=== PATIENT | female | born 1950 | race African-American/Black ===

== ENCOUNTER 2016-12-19 20:52 | Inpatient (IN) ==
[2016-12-19] MEDS ORDERED: SODIUM CHLORIDE 0.9% 500 ML IV STA (21:58)
[2016-12-19] MEDS ORDERED: NITROGLYCERIN 2% OINT 1 INCH/GM PACK TOP STA (21:58)
[2016-12-19] MEDS ORDERED: ALUM/MAG/SIMETH/LIDO VISC 1:1 30 ML BOTTLE PO STA (21:58)
[2016-12-19] MEDS ORDERED: ASPIRIN 325 MG TABLET PO STA (21:58)
[2016-12-19] MEDS ORDERED: ONDANSETRON 4 MG/2 ML VIAL IV STA (21:58)
--- NOTE | 2016-12-19 21:59 | Emergency Department Note ---
Migdalia Gutierres Gwan, am scribing for, and in the presence of, Brody Kirby MD 21 :38. Kofi Gutierres Charles R, MD, personally performed the services described in this documentation, ascribed by Lu Negron in my presence, and it is both accurate and complete . Arrival - Arrival Chief Complaint: Chest Pain Stated Complaint: chest pain ED Nursing Triage Note: Pt to triage with c/o chest pain that feels like pressure that raidates to her neck. Denies any sob but n/v today. Pt had a heart cath done on last Friday by . Family states she havent been the same since surgery. Pt also states she been feeling very light headed and dizzy. Rates chest pain 12/04 Mode of Arrival: Wheelchair Limitations: No Limitations Source: Patient, Family, Old Records Reviewed, RN Notes Reviewed - History of Present Illness HPI Narrative: Patient is a 66 y/o black female who presents to the ED with a c/o chest pain, hematuria, urine frequency and dizziness with an onset 6 days ago. Pt has a PMHx of IDDM and polio. She was last seen in ED 11/29/2016 for similar reason. Patient stated that she had a heart cath performed [address] Akbar with negative results. She describes her chest pain as pressure and that her chest pain radiates to her neck. Family confirmed that since heart cath, pt has appeared confused and "not making any sense". Patient is followed by Dr. Zelaya. Patient denies any trauma to her chest or her head. During exam, pt did not appear to be in any distress. Onset (ago): day(s) Consistency: constant Severity: moderate Allergies/Adverse Reactions: Allergies Allergy/AdvReac Type Severity Reaction Status Date / Time doxycycline Allergy HIVES Verified 12/19/16 21:08 Penicillins Allergy ANAPHYLAXIS Verified 12/19/16 21:08 Sulfa (Sulfonamide AdvReac RASH Verified 12/19/16 21:08 Antibiotics) Home Medications: Home Medications Medication Instructions Recorded Confirmed Type Amlodipine Besylate 10 mg PO DAILY 11/25/14 12/13/16 History Omeprazole [Prilosec] 20 mg PO BEDTIME 11/25/14 12/13/16 History Rosuvastatin Calcium [Crestor] 40 mg PO BEDTIME 11/25/14 12/13/16 History Acetaminophen Tab [Tylenol Tab] 325 mg PO BID #100 tablet 12/13/16 Rx Aspirin [Aspirin EC] 81 mg PO DAILY 12/13/16 12/13/16 History Furosemide 20 mg PO DAILY 12/13/16 12/13/16 History NIFEdipine XL TAB [Procardia Xl] 30 mg PO DAILY 12/13/16 12/13/16 History Review of System - Review of System 12 point system: reviewed and no additional remarkable complaints except as stated - Review of System Constitutional: Absent: chills, fever Eyes: Absent: discharge Head/Ears/Nose/Throat: Absent: earache Respiratory: Absent: cough Cardiovascular: Present: as per HPI, chest pain Gastrointestinal: Absent: abdominal pain, nausea, vomiting Genitourinary female: Present: as per HPI, frequency, hematuria. Absent: dysuria Musculoskeletal: Absent: arm pain, back pain, leg pain, neck pain Skin: Absent: rash, lesions Neurological: Absent: headache Medical,Surgical,& Family Hx - Medical History Cardio: History of: Hypertension Neurology: History of: Migraine, Neurological Problems (history of polio as a child resulting in right lower extremity weakness) No history of: Seizures - Family History Family History: Reports;: Family Heart Disease - Social History Smoking Status: Never smoker Frequency of Alcohol Use: None Type of Drug Use: None Exam Vital Signs: Vital Signs Temperature 99.6 F 12/19/16 22:24 Pulse Rate 101 H 12/19/16 22:24 Respiratory Rate 16 12/19/16 22:24 Blood Pressure 104/66 12/19/16 22:24 O2 Sat by Pulse Oximetry 95 12/19/16 20:57 - General General appearance: alert, in no apparent distress - Head Head exam: Present: atraumatic, normocephalic - Eye Eye exam: Present: PERRL, EOMI, nystagmus (bilatrally) - ENT ENT exam: Present: normal oropharynx, mucous membranes moist, TM's normal bilaterally, normal external ear exam - Neck Neck exam: Present: full ROM, trachea midline. Absent: tenderness - Chest Chest inspection: Present: symmetric chest wall rise. Absent: tenderness - Respiratory Respiratory exam: Present: normal lung sounds bilaterally. Absent: respiratory distress - Cardiovascular Cardiovascular exam: Present: regular rate, normal rhythm, normal heart sounds. Absent: murmur - Abdominal Exam Abdominal exam: Present: soft, distention (patient has an obvious fullness to suprapubc area but pt denies any tenderness/pain in that area), normal bowel sounds. Absent: tenderness - Extremities Exam Extremities exam: Absent: full ROM (Patient has brace on left lower extremitiy consistant with PMHx of polio), tenderness - Back Exam Back exam: Present: full ROM. Absent: tenderness - Neurological Exam Neurological exam: Present: alert, oriented X3, CN II-XII intact. Absent: motor sensory deficit - Psychiatric Psychiatric exam: Present: normal affect, normal mood - Skin Skin exam: Present: warm, dry, intact, normal color Course - Consultations Consultation #1: Dr. Covarrubias will admit patient for Dr. Dr. Zelaya Time: 00:42 Results - Labs CBC & BMP: 12/19/16 21:33 12/19/16 21:33 Lab Results: I have reviewed the patients labs Labs: Laboratory Tests 12/19/16 12/19/16 12/19/16 21:33 21:33 21:33 WBC 18.5 H RBC 4.50 Hgb 13.0 Hct 38.7 MCV 86.0 L Plt Count 217 Neut % (Auto) 84.8 H Lymph % (Auto) 8.9 L Neut # (Auto) 15.7 H Meade # (Auto) 1.0 H INR 1.2 PT Patient/Control Mix 12.4 D-Dimer, Quantitative 3.6 Sodium 140 Potassium 3.3 L Chloride 102 Carbon Dioxide 22 Anion Gap 19.3 H BUN 15 Creatinine 1.20 H Glucose 143 H Calcium 8.3 L Magnesium 1.7 L Albumin 3.1 L Globulin 3.9 H Albumin/Globulin Ratio 0.7 L Lipase 108.0 Urine pH Ur Specific Andrews Urine Protein Urine Ketones Urine Blood Urine Urobilinogen Urine RBC Urine WBC Laboratory Tests 12/19/16 21:58 Urine pH 6.0 Ur Specific Andrews 1.017 Urine Protein 100 Urine Ketones 20 Urine Blood Moderate Urine Urobilinogen < 2.0 H Urine RBC 2 Urine WBC 9 - Diagnostic Findings Procedure: Chest x-ray: report reviewed by me (No evidence of acute pathology. ) , CT - chest: image reviewed by me, report reviewed by me (No pulmonary embolus) , CT: report reviewed by me (Head: No CT evidence of acute intracranial pathology. ) Disposition Clinical Impression: Atypical chest pain, UTI (urinary tract infection), Leukocytosis, Confusion Case discussed with: patient, patient's family Disposition: Still a Patient Condition: Stable Time of Disposition: 00:40
--- NOTE | 2016-12-19 22:02 | EKG Report ---
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
[2016-12-19 22:07] LABS: Basophils % 0.2 % (0.0-0.8); Hematocrit 38.7 VOL% (35.7-47.0); Immature Granulocytes % 0.8 %; Immature Granulocytes Absolute 0.14 #; Lymphocytes # 1.6 10*3/uL (1.4-4.0); Lymphocytes % 8.9 % (21.3-54.2); Mean Corpuscular HGB Conc 33.6 GM/DL (32-36); Mean Corpuscular Hemoglobin 29 PG (27-34); Monocytes % 5.3 % (1.7-12.7); Neutrophils # 15.7 10*3/uL (1.4-7.4); Neutrophils % 84.8 % (38.7-73.9); Platelet Count 217 T/CUMM (130-400); Red Cell Distribution Width 14.5 % (9.3-17.3); White Blood Count 18.5 T/CUMM (4-12)
[2016-12-19] MEDS ORDERED: ASPIRIN 325 MG TABLET ONE (22:13)
[2016-12-19] MEDS ORDERED: ONDANSETRON 4 MG/2 ML VIAL ONE (22:13)
[2016-12-19] MEDS ORDERED: NITROGLYCERIN 2% OINT 1 INCH/GM PACK TOP ONE (22:13)
[2016-12-19] MEDS ORDERED: ALUM/MAG/SIMETH/LIDO VISC 1:1 30 ML BOTTLE PO ONE (22:13)
[2016-12-19 22:19] LABS: D-Dimer 3.6 MG/L FEU; INR 1.2; PT Patient Result 12.4 SECS
[2016-12-19 22:28] LABS: Apearance,Urine Slightly Hazy (Clear); Bacteria,Urine Occasional /HPF (Few); Bilirubin,Urine Negative (Negative); Blood, Urine Moderate mg/dL (Negative); Glucose,Urine (UA) Negative (Negative); Ketones,Urine 20 mg/dL (Negative); Mucus,Urine Occasional /LPF (Occasional); Nitrite,Urine Negative (Negative); Protein,Urine 100 MG/DL; RBC,Urine 2 /HPF (0-4); Squamous Epithelial Cell,Urine Occasional /HPF (0-10); Urine Color Yellow (Yellow); Urine Specific Gravity 1.017 (1.001-1.035); Urine Urobilinogen < 2.0 EU/DL (0.2-1.0); WBC,Urine 9 /HPF (0-6)
[2016-12-19 22:28] LABS: Albumin 3.1 G/DL (3.4-5.0); Bilirubin,Total 0.5 MG/DL (0.2-1.0); Calcium 8.3 MG/DL (8.5-10.1); Magnesium 1.7 MG/DL (1.8-2.4); Osmolality,Calculated 281.4 MOS/KG (273-304); Potassium 3.3 MMOL/L (3.5-5.1)
--- NOTE | 2016-12-19 22:31 | XRay Report ---
XR chest 1V portable Indication: Chest pain. Comparison: Chest x-ray 12/13/2016 Technique: Portable AP chest was performed. Findings: Heart size, mediastinal contour, and hilar structures demonstrate no significant abnormalities. The lung parenchyma is clear. Bones and soft tissues demonstrate no significant abnormalities. Impression: 1. No evidence of acute pathology. 12/19/2016 10:29 PM PROCEDURE INTERPRETED AT [facility] DEPARTMENT OF RADIOLOGY Final Report Signed by: Dr. Edmundo Lopez
--- NOTE | 2016-12-19 22:31 | CT Report ---
CT head/brain wo con Indication: Confusion. Dizziness. Comparison: None. Technique: CT of the brain was performed without administration of intravenous contrast. The CT examination was performed using one or more of the following dose reduction techniques: Automatic exposure control, adjustment of the mA and kV according to patient size, use of acute or iterative reconstruction techniques. Findings: There is no evidence of acute intracranial hemorrhage, mass, or infarction. Ventricles appear within normal limits. The basal cisterns are patent. No significant abnormality is demonstrated to involve the posterior fossa or cerebellum. Orbits and globes demonstrate no evidence of significant pathology. Extensive surgical changes are noted bilaterally within the paranasal sinuses. No significant abnormality is demonstrated to involve the mastoid air cells. The calvarium and overlying soft tissues demonstrate no evidence of acute pathology. Impression: 1. No CT evidence of acute intracranial pathology. 12/19/2016 10:28 PM PROCEDURE INTERPRETED AT [facility] DEPARTMENT OF RADIOLOGY Final Report Signed by: Dr. Edmundo Lopez
[2016-12-19] MEDS ORDERED: POTASSIUM CHLORIDE 20 MEQ TABLET PO STA (23:06)
[2016-12-19] MEDS ORDERED: POTASSIUM CHLORIDE 20 MEQ TABLET PO ONE (23:33)
[2016-12-20] MEDS ORDERED: LEVOFLOXACIN INJ 500 MG in PREMIX 1 EACH IV STA (00:41)
[2016-12-20] MEDS ORDERED: LEVOFLOXACIN INJ 100 ML IV ONE (02:02)
[2016-12-20] MEDS ORDERED: MORPHINE 2 MG/1 ML SYRINGE IV PRN (02:58)
[2016-12-20] MEDS ORDERED: GLUCAGON 1 MG VIAL IM PRN (02:58)
[2016-12-20] MEDS ORDERED: ONDANSETRON 4 MG/2 ML VIAL IV PRN (02:58)
[2016-12-20] MEDS ORDERED: DEXTROSE 50% 25 GM/50 ML VIAL IV PRN (02:58)
[2016-12-20] MEDS: SODIUM CHLORIDE 0.9% 1,000 ML IV SCH ×2 (03:30→18:19)
[2016-12-20 05:19] LABS: Basophils % 0.2 % (0.0-0.8); Hematocrit 35.7 VOL% (35.7-47.0); Immature Granulocytes % 0.6 %; Immature Granulocytes Absolute 0.09 #; Lymphocytes # 1.2 10*3/uL (1.4-4.0); Lymphocytes % 7.4 % (21.3-54.2); Mean Corpuscular HGB Conc 33.6 GM/DL (32-36); Mean Corpuscular Hemoglobin 29 PG (27-34); Mean Corpuscular Volume 85.8 FL (87-102); Monocytes # 0.8 10*3/uL (0.11-0.8); Monocytes % 4.8 % (1.7-12.7); Platelet Count 200 T/CUMM (130-400); Red Blood Count 4.16 MC/CUMM (3.8-5.5); Red Cell Distribution Width 14.4 % (9.3-17.3)
[2016-12-20 05:43] LABS: Band Neutrophils 7 % (0-10); Eosinophils 1 % (0-10); Lymphocytes 6 % (20-55); Segmented Neutrophils 84 % (50-85); Total Cells Counted 100
[2016-12-20 05:44] LABS: Hypochromasia 1+; Platelet Estimate Adequate
[2016-12-20 05:49] LABS: Albumin 2.9 G/DL (3.4-5.0); Bilirubin,Total 0.5 MG/DL (0.2-1.0); Magnesium 1.8 MG/DL (1.8-2.4); Osmolality,Calculated 278.7 MOS/KG (273-304); Potassium 3.3 MMOL/L (3.5-5.1); Risk Ratio 4.93; Total Protein 6.7 G/DL (6.4-8.3); VLDL CHOLESTEROL 24.6 MG/DL
--- NOTE | 2016-12-20 05:49 | CT Report ---
EXAM: CT chest PE study DATE: December 19, 2016 COMPARISON: None REASON: Chest pain, elevated d-dimer, tachycardia, shortness of breath Preliminary report was provided by [facility]. TECHNIQUE: Axial images of the chest were obtained after administration of 80 cc of Omnipaque 350 intravenous contrast. Coronal/sagittal reformatted images and coronal/sagittal sagittal MIP images were also acquired. The study was performed per pulmonary embolism protocol. Total DLP was 959.7 mGy*cm. FINDINGS: Pulmonary arteries: Evaluation of the pulmonary arteries is limited by poor opacification. However, no convincing pulmonary emboli are identified. Vascular/heart: The thoracic aorta is normal in size without evidence of dissection. The heart is normal in size, and no pericardial effusion is seen. Calcified plaque is noted at the left coronary artery. Lymph nodes: No suspicious adenopathy is identified at the chest. Other mediastinum: There is a small hiatal hernia. Chest wall: There are areas of asymmetric muscle atrophy on the left, involving the left pectoralis major muscle. Lungs: There is minimal dependent atelectasis. No pneumothorax or pleural effusion is identified. Bones: No acute osseous process is identified. Upper abdomen: There is diffuse decreased attenuation of the liver, suggesting hepatic steatosis. A 1.1 cm hypodensity is seen within the left hepatic lobe adjacent to the left hepatic vein on image 81. This likely represents a cyst. IMPRESSION: 1. The pulmonary arteries are poorly opacified, but no convincing pulmonary embolus is identified. 2. Hepatic steatosis and 1.1 cm left hepatic cyst. 3. Small hiatal hernia. PROCEDURE INTERPRETED AT [facility] DEPARTMENT OF RADIOLOGY Final Report Signed by: Dr. Burt Fowler
[2016-12-20] MEDS: NITROGLYCERIN 2% OINT 1 INCH/GM PACK TOP SCH ×3 (06:09→18:17)
--- NOTE | 2016-12-20 07:25 | EKG Report ---
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
--- NOTE | 2016-12-20 08:09 | Family Practice History&Phys ---
Assessment and Plan (1) Unsteady gait Status: Acute Assessment and plan: 12/20/2016: MRI of the brain has been ordered. Current Visit: Yes (2) Chest pain in adult Status: Acute Assessment and plan: 12/20/2016: Suspect GI etiology of her discomfort but certainly could be musculoskeletal as well. She has had a negative CT chest and a negative left heart catheterization. Current Visit: No History of Present Illness Chief complaint: Unsteady gait History of present illness: Ms. Abebe is a 66 year old female Patient 66-year-old white female presents emergency room complaining of chest pain and unsteady gait. Patient states this began after she had her left heart catheterization last week. This showed no evidence of coronary artery disease. Patient states this pain is been steadily present since its onset. She denies any dyspepsia or dysphasia and is not having any nausea or vomiting. She denies any back pain. Patient states she has noticed that her gait is unsteady and this is very worrisome for her and she is impaired from her childhood polio. Patient states she has not noticed any increased weakness in her left lower extremity but she feels unsteady when she walks. She has not fallen. I told her she needed have an MRI of the brain and she was agreeable to that. CT brain in the emergency room revealed no acute abnormality. I also note that she had a CT of the chest ordered by Dr. Kirby. Home Medications Medication Instructions Recorded Confirmed Type Amlodipine Besylate 10 mg PO DAILY 11/25/14 12/13/16 History Omeprazole [Prilosec] 20 mg PO BEDTIME 11/25/14 12/13/16 History Rosuvastatin Calcium [Crestor] 40 mg PO BEDTIME 11/25/14 12/13/16 History Acetaminophen Tab [Tylenol Tab] 325 mg PO BID #100 tablet 12/13/16 Rx Aspirin [Aspirin EC] 81 mg PO DAILY 12/13/16 12/13/16 History Furosemide 20 mg PO DAILY 12/13/16 12/13/16 History NIFEdipine XL TAB [Procardia Xl] 30 mg PO DAILY 12/13/16 12/13/16 History Allergies Allergy/AdvReac Type Severity Reaction Status Date / Time doxycycline Allergy HIVES Verified 12/19/16 21:08 Penicillins Allergy ANAPHYLAXIS Verified 12/19/16 21:08 Sulfa (Sulfonamide AdvReac RASH Verified 12/19/16 21:08 Antibiotics) - Constitutional Constitutional: Present: weakness. Absent: chills, fever(s) - EENT Eyes: Absent: blurry vision, loss of vision Ears: Absent: decreased hearing, ear pain Nose, mouth and throat: Absent: headache(s), sinus pressure, sore throat - Cardiovascular Cardiovascular: Absent: chest pain at rest, dyspnea on exertion, lightheadedness , orthopnea, palpitations, PND - Respiratory Respiratory: Absent: cough, wheezing - Gastrointestinal Gastrointestinal: Absent: abdominal pain, diarrhea, nausea, vomiting - Genitourinary Genitourinary: Present: dysuria. Absent: urinary frequency, urinary hesitancy - Musculoskeletal Musculoskeletal: Absent: arthralgias, back pain - Neurological Neurological: Present: abnormal gait, focal weakness (Chronic right lower extremity weakness from polio), headache(s). Absent: numbness, paresthesias - Psychiatric Psychiatric: Absent: confusion, depression - Endocrine Endocrine: Absent: fatigue, polydipsia, polyphagia - Hematologic/Lymphatic Hematologic/Lymphatic: Absent: easy bleeding, easy bruising Medical,Surgical,& Family Hx - Medical History Cardio: History of: Hypertension Neurology: History of: Migraine, Neurological Problems (history of polio as a child resulting in right lower extremity weakness) No history of: Seizures Endocrine: History of: Diabetes Mellitus (NIDDM) Musculoskeletal: History of: Musculoskeletal Problems (brace on right leg to walk polio as child) - Surgical History Cardiac Surgeries: Sugical HX of: Cardiac Catheterization (12/13/2016) - Family History Family History: Reports;: Family Heart Disease - Social History Smoking Status: Never smoker Frequency of Alcohol Use: None Type of Drug Use: None Exam - Constitutional Vitals: Period Temp Pulse Resp BP Sys/Jenkins Pulse Ox Last 24 Hr 99.6 F-100.9 F 101-124 16-20 104-136/52-85 94-98 Exam: General: Objective patient is a well-developed black female in no acute distress. Patient is able to give good history. HEENT: Pupils equal and reactive to light. Patent nares and airway Neck: No meningismus, adenopathy, thyromegaly. There are no auscultated carotid bruits. Cardiovascular: Regular rhythm. No murmurs or gallops Chest: Clear to auscultation without rales rhonchi wheezes. Abdomen: Soft nontender to palpation No masses, rebound, guarding or tenderness. Neuro: Cranial nerves intact. 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 Patient has chronic right lower extremity weakness and atrophy related to that. Dermatologic: No evidence of abnormal lesions or masses. Musculoskeletal: There is no joint swelling or tenderness or deformity. Extremities: There is no calf swelling or tenderness. Results - Labs CBC & BMP: 12/20/16 04:58 12/20/16 04:58 Lab Results: I have reviewed the past 24 hour labs
--- NOTE | 2016-12-20 08:48 | XRay Report ---
Exam: Chest 2 views Date: December 20, 2016 at 8:29 AM Comparison: Chest one view portable December 19, 2016 Reason: Shortness of breath Findings: The cardiac silhouette is normal in size. No focal consolidation, pneumothorax or pleural effusion is identified. No acute osseous process is seen. Impression: No acute cardiopulmonary process is identified. PROCEDURE INTERPRETED AT [facility] DEPARTMENT OF RADIOLOGY Final Report Signed by: Dr. Burt Fowler
[2016-12-20] MEDS: DOCUSATE SODIUM 100 MG CAPSULE PO SCH ×2 (08:57→21:27)
[2016-12-20] MEDS: amLODIPine 10 MG TABLET PO SCH (08:57)
[2016-12-20] MEDS: ACETAMINOPHEN 325 MG TABLET PO PRN ×3 (08:57→22:32)
[2016-12-20] MEDS: ENOXAPARIN 40 MG/0.4 ML SYRINGE SUBCUT SCH (08:57)
[2016-12-20] MEDS: ASPIRIN EC 81 MG TABLET PO SCH (08:57)
[2016-12-20] MEDS: PANTOPRAZOLE 40 MG VIAL IV SCH (08:57)
[2016-12-20] MEDS: FUROSEMIDE 20 MG TABLET PO SCH (08:57)
[2016-12-20] MEDS: INSULIN LISPRO 100 UNIT/ML SUBCUT SCH ×4 (09:00→21:29)
--- NOTE | 2016-12-20 15:13 | Magnetic Resonance Report ---
Exam: MR head/brain wo con Date: 12/20/2016 8:03 AM Comparison: CT brain 12/19/2016, MRI brain 08/28/2010 Indication: Steady gait, confusion, recent heart catheterization, dizziness, patient has a neurostimulator which was turned off for the exam. Technique:[Multiple acquisitions were obtained including sagittal T1, coronal T2, and axial ADC, diffusion, FLAIR, T2, GRE, and T1 scans without contrast only. Scans were obtained on a 1.5 Darleen magnet.] Findings: The ventricles are normal in size with no midline displacement. The pituitary has a normal appearance and the cerebellar tonsils are normal in their location. No acute infarction is identified on the diffusion scans. No evidence of hemorrhage, mass, or extracerebral collection. Diffuse cerebral atrophy with a few small scattered FLAIR/T2 hyperintensities. Enlarged perivascular spaces which represent a normal variant. No acute findings in the paranasal sinuses, orbits, temporal bones, or [place]. Impression: Motion artifact. No acute intracranial pathology identified. Minimal atrophy with very minimal microvascular disease. PROCEDURE INTERPRETED AT [facility] DEPARTMENT OF RADIOLOGY Final Report Signed by: Dr. Seema Salinas
[2016-12-20] MEDS: ROSUVASTATIN 20 MG TABLET PO SCH (21:26)
[2016-12-20] MEDS: LEVOFLOXACIN INJ 500 MG in PREMIX 1 EACH IV SCH (21:29)
[2016-12-21] MEDS: NITROGLYCERIN 2% OINT 1 INCH/GM PACK TOP SCH ×3 (06:00→12:04)
--- NOTE | 2016-12-21 07:52 | Family Practice Progress Note ---
Family Practice - PN: Subj Interval history: Patient states she is feeling some better this morning but she still having some pain in the site where she had her left heart catheterization puncture. I have ordered an ultrasound to rule out pseudoaneurysm. I also notes that she has had 2 positive blood cultures for gram-positive Cocci. X-ray of her right hip will be ordered as well. Exam (Progress Note) - Constitutional Vitals: Period Temp Pulse Resp BP Sys/Jenkins Pulse Ox Last 24 Hr 97.1 F-102.1 F 88-104 18-22 106-136/52-69 92-100 Exam: Objective reveals a well-developed black female no acute distress. She states she is feeling better from yesterday and her temperature is down with the addition of IV Levaquin. She has gram-positive septicemia however. Cardiovascular: Heart rates regular without murmurs or gallops. Respiratory: The lungs clear to auscultation bilaterally. Abdomen: Abdomen soft and nontender to palpation. Patient still has some tenderness in the area of her right groin and I do not feel a mass. I will order ultrasound for groin as well as x-ray of her right hip. Results - Labs CBC & BMP: 12/20/16 04:58 12/20/16 04:58 Lab Results: I have reviewed the past 24 hour labs Assessment and Plan (1) Unsteady gait Status: Acute Assessment and plan: 12/20/2016: MRI of the brain has been ordered. 12/21/2016: MRI of the brain was unrevealing. Current Visit: Yes (2) Chest pain in adult Status: Acute Assessment and plan: 12/20/2016: Suspect GI etiology of her discomfort but certainly could be musculoskeletal as well. She has had a negative CT chest and a negative left heart catheterization. 12/21/2016: Patient denies any further chest pain. Current Visit: No (3) Gram positive septicemia Status: Acute Assessment and plan: 12/21/2016: Will check x-ray of the right hip and also ultrasound of the right groin. I am going to start IV vancomycin. Current Visit: Yes
[2016-12-21] MEDS: INSULIN LISPRO 100 UNIT/ML SUBCUT SCH ×4 (08:39→20:58)
[2016-12-21] MEDS: ENOXAPARIN 40 MG/0.4 ML SYRINGE SUBCUT SCH (08:42)
[2016-12-21] MEDS: FUROSEMIDE 20 MG TABLET PO SCH (08:42)
[2016-12-21] MEDS: amLODIPine 10 MG TABLET PO SCH (08:42)
[2016-12-21] MEDS: DOCUSATE SODIUM 100 MG CAPSULE PO SCH ×2 (08:42→21:12)
[2016-12-21] MEDS: PANTOPRAZOLE 40 MG VIAL IV SCH (08:43)
[2016-12-21] MEDS: ASPIRIN EC 81 MG TABLET PO SCH (09:05)
[2016-12-21] MEDS: VANCOMYCIN INJ 1,250 MG in SODIUM CHLORIDE 0.9% 250 ML IV SCH (09:49)
--- NOTE | 2016-12-21 12:19 | Ultrasound Report ---
History: Left groin pain after heart catheterization Date: 12/21/2016 Study: Ultrasound arterial duplex limited to left lower extremity for pseudoaneurysm Comparison exam: No previous Real-time ultrasound images are captured and archived. Targeted grayscale, color Doppler, and pulse wave Doppler images of the left common femoral artery and proximal superficial femoral artery are submitted. There is mild atherosclerotic irregularity of the left common femoral artery. There is no pseudoaneurysm or AV fistula. There is no high-grade stenosis. There is no organized hematoma. The adjacent left common femoral vein is patent. Some small left inguinal lymph nodes are noted. Impression: No pseudoaneurysm or other localized abnormality of significance otherwise in the left groin as discussed above PROCEDURE INTERPRETED AT [facility] DEPARTMENT OF RADIOLOGY Final Report Signed by: Dr. Bev Obregon
[2016-12-21] MEDS: ACETAMINOPHEN 325 MG TABLET PO PRN (15:45)
--- NOTE | 2016-12-21 19:45 | XRay Report ---
History: Hip pain and fever Date: 12/21/2016 Study: Left hip 2 views Comparison exam: Pelvis x-ray March 10, 2012 There is no fracture, dislocation, or focal destructive osseous abnormality. A neurostimulator lead overlies the sacral area to the left of midline. Impression: No acute abnormality PROCEDURE INTERPRETED AT [facility] DEPARTMENT OF RADIOLOGY Final Report Signed by: Dr. Bev Obregon
[2016-12-21] MEDS: ROSUVASTATIN 20 MG TABLET PO SCH (20:53)
[2016-12-21] MEDS: LEVOFLOXACIN INJ 500 MG in PREMIX 1 EACH IV SCH (20:55)
[2016-12-22 05:20] LABS: Basophils % 0.3 % (0.0-0.8); Eosinophils % 0.1 % (0.00-10.9); Hematocrit 33.6 VOL% (35.7-47.0); Hemoglobin 11.5 GM/DL (12.0-16.0); Immature Granulocytes Absolute 0.07 #; Lymphocytes # 1.6 10*3/uL (1.4-4.0); Lymphocytes % 23.5 % (21.3-54.2); Mean Corpuscular HGB Conc 34.2 GM/DL (32-36); Mean Corpuscular Hemoglobin 29 PG (27-34); Mean Corpuscular Volume 84.6 FL (87-102); Mean Platelet Volume 10.5 FL (9.6-12.0); Monocytes # 0.7 10*3/uL (0.11-0.8); Neutrophils # 4.5 10*3/uL (1.4-7.4); Neutrophils % 65.1 % (38.7-73.9); Platelet Count 167 T/CUMM (130-400); Red Blood Count 3.97 MC/CUMM (3.8-5.5); Red Cell Distribution Width 14.4 % (9.3-17.3)
[2016-12-22 05:49] LABS: Band Neutrophils 1 % (0-10); Lymphocytes 22 % (20-55); Platelet Estimate Normal; Segmented Neutrophils 67 % (50-85); Total Cells Counted 100
[2016-12-22] MEDS ORDERED: traMADol 50 MG TABLET PO PRN (08:07)
--- NOTE | 2016-12-22 08:11 | Family Practice Progress Note ---
Family Practice - PN: Subj Interval history: Patient states she is feeling some better this morning has not had any fever or chills. Both her blood cultures are positive for methicillin sensitive staph aureus. She had a negative ultrasound of her left groin and her x-rays of her hip appeared normal. She has not had any dental work or any other procedure other than her left heart catheterization. Exam (Progress Note) - Constitutional Vitals: Period Temp Pulse Resp BP Sys/Jenkins Pulse Ox Last 24 Hr 98.1 F-100.2 F 82-95 17-20 108-125/51-61 92-99 Exam: Objective reveals a well-developed black female no acute distress. She states she is feeling better from yesterday and her temperature is controlled. Cardiovascular: Heart rates regular without murmurs or gallops. Respiratory: The lungs clear to auscultation bilaterally. Abdomen: Abdomen soft and nontender to palpation. Results - Labs CBC & BMP: 12/22/16 04:38 12/20/16 04:58 Lab Results: I have reviewed the past 24 hour labs Assessment and Plan (1) Unsteady gait Status: Resolved Assessment and plan: 12/20/2016: MRI of the brain has been ordered. 12/21/2016: MRI of the brain was unrevealing. Current Visit: Yes (2) Chest pain in adult Status: Resolved Assessment and plan: 12/20/2016: Suspect GI etiology of her discomfort but certainly could be musculoskeletal as well. She has had a negative CT chest and a negative left heart catheterization. 12/21/2016: Patient denies any further chest pain. Current Visit: No (3) Gram positive septicemia Status: Acute Assessment and plan: 12/21/2016: Will check x-ray of the right hip and also ultrasound of the right groin. I am going to start IV vancomycin. 12/14/2016: Patient is clinically improved with the addition of vancomycin. Current Visit: Yes
[2016-12-22] MEDS: FUROSEMIDE 20 MG TABLET PO SCH (08:21)
[2016-12-22] MEDS: ACETAMINOPHEN 325 MG TABLET PO PRN (08:21)
[2016-12-22] MEDS: predniSONE 10 MG TABLET PO SCH (08:22)
[2016-12-22] MEDS: amLODIPine 10 MG TABLET PO SCH (08:22)
[2016-12-22] MEDS: GABAPENTIN 100 MG CAPSULE PO SCH ×3 (08:22→21:45)
[2016-12-22] MEDS: PANTOPRAZOLE 40 MG VIAL IV SCH (08:22)
[2016-12-22] MEDS: ASPIRIN EC 81 MG TABLET PO SCH (08:22)
[2016-12-22] MEDS: ENOXAPARIN 40 MG/0.4 ML SYRINGE SUBCUT SCH (08:25)
[2016-12-22] MEDS: VANCOMYCIN INJ 1,250 MG in SODIUM CHLORIDE 0.9% 250 ML IV SCH (08:27)
[2016-12-22] MEDS: INSULIN LISPRO 100 UNIT/ML SUBCUT SCH ×4 (08:31→22:12)
[2016-12-22] MEDS: DOCUSATE SODIUM 100 MG CAPSULE PO SCH ×2 (09:09→21:44)
[2016-12-22 12:00] LABS: Calcium 8.2 MG/DL (8.5-10.1); Osmolality,Calculated 283.3 MOS/KG (273-304); Potassium 3.3 MMOL/L (3.5-5.1)
[2016-12-22] MEDS: ROSUVASTATIN 20 MG TABLET PO SCH (21:45)
[2016-12-22] MEDS: DIVALPROEX ER 500 MG TABLET PO SCH (21:46)
[2016-12-22] MEDS: LEVOFLOXACIN INJ 500 MG in PREMIX 1 EACH IV SCH (21:52)
[2016-12-23] MEDS: INSULIN LISPRO 100 UNIT/ML SUBCUT SCH ×4 (08:38→20:53)
--- NOTE | 2016-12-23 08:59 | Family Practice Progress Note ---
Family Practice - PN: Subj Interval history: Patient states she is feeling some better this morning but still feels a little bit weak. She has not had any further fever or chills. She has methicillin was sensitive staph aureus on 2 blood cultures. I am going to repeat her blood cultures and CRP today and asked Dr. Moore to see her as well. Exam (Progress Note) - Constitutional Vitals: Period Temp Pulse Resp BP Sys/Jenkins Pulse Ox Last 24 Hr 97.4 F-98.1 F 76-84 16-20 110-122/57-67 93-98 Exam: Objective reveals a well-developed black female no acute distress. Patient states she is feeling much better. Cardiovascular: Heart rates regular without murmurs or gallops. Respiratory: The lungs clear to auscultation bilaterally. Abdomen: Abdomen soft and nontender to palpation. Results - Labs CBC & BMP: 12/22/16 04:38 12/22/16 11:23 Lab Results: I have reviewed the past 24 hour labs Assessment and Plan (1) Unsteady gait Status: Resolved Assessment and plan: 12/20/2016: MRI of the brain has been ordered. 12/21/2016: MRI of the brain was unrevealing. Current Visit: Yes (2) Chest pain in adult Status: Resolved Assessment and plan: 12/20/2016: Suspect GI etiology of her discomfort but certainly could be musculoskeletal as well. She has had a negative CT chest and a negative left heart catheterization. 12/21/2016: Patient denies any further chest pain. Current Visit: No (3) Gram positive septicemia Status: Acute Assessment and plan: 12/21/2016: Will check x-ray of the right hip and also ultrasound of the right groin. I am going to start IV vancomycin. 12/22/2016: Patient is clinically improved with the addition of vancomycin. 12/23/2016: We will repeat blood cultures and CRP. Dr. Moore will be consulted. Current Visit: Yes
[2016-12-23] MEDS: VANCOMYCIN INJ 1,250 MG in SODIUM CHLORIDE 0.9% 250 ML IV SCH (09:43)
[2016-12-23] MEDS: ENOXAPARIN 40 MG/0.4 ML SYRINGE SUBCUT SCH (09:44)
[2016-12-23] MEDS: predniSONE 10 MG TABLET PO SCH (09:44)
[2016-12-23] MEDS: ASPIRIN EC 81 MG TABLET PO SCH (09:44)
[2016-12-23] MEDS: PANTOPRAZOLE 40 MG VIAL IV SCH (09:44)
[2016-12-23] MEDS: amLODIPine 10 MG TABLET PO SCH (09:44)
[2016-12-23] MEDS: DOCUSATE SODIUM 100 MG CAPSULE PO SCH ×2 (09:44→20:47)
[2016-12-23] MEDS: GABAPENTIN 100 MG CAPSULE PO SCH ×3 (09:44→20:46)
[2016-12-23] MEDS: FUROSEMIDE 20 MG TABLET PO SCH (09:44)
--- NOTE | 2016-12-23 13:33 | Neurology Consult Note ---
History of Present Illness History of present illness: Patient 66-year-old -[place] lady presents emergency room complaining of chest pain and unsteady gait. Patient states this began after she had her left heart catheterization 1 week ago. This showed no evidence of coronary artery disease. Patient states this pain is been steadily present since its onset. She denies any dyspepsia or dysphasia and is not having any nausea or vomiting. She denies any back pain. Patient states she has noticed that her gait is unsteady and this is very worrisome for her and she is impaired from her childhood polio. Patient reported that she just cannot walk. She was able to go before with slight limp. Patient states left leg is weaker. She has not fallen. MRI of the brain reveals no acute abnormalities. She was also found to have septicemia with staph aureus. Home Medications Medication Instructions Recorded Confirmed Type Amlodipine Besylate 10 mg PO DAILY 11/25/14 12/20/16 History Omeprazole [Prilosec] 20 mg PO BEDTIME 11/25/14 12/20/16 History Rosuvastatin Calcium [Crestor] 40 mg PO BEDTIME 11/25/14 12/20/16 History Acetaminophen Tab [Tylenol Tab] 325 mg PO BID #100 tablet 12/13/16 12/20/16 Rx Aspirin [Aspirin EC] 81 mg PO DAILY 12/13/16 12/20/16 History Furosemide 20 mg PO DAILY 12/13/16 12/20/16 History NIFEdipine XL TAB [Procardia Xl] 30 mg PO DAILY PRN 12/13/16 12/20/16 History Divalproex ER [Depakote ER] 500 mg PO BEDTIME 12/20/16 12/20/16 History Ergocalciferol (Vitamin D2) 50,000 unit PO 12/20/16 12/20/16 History [Vitamin D2] Estradiol [Estradiol 0.05 mg/24 hr 1 patch TRANSDERM 12/20/16 12/20/16 History (weekly) Patch] Gabapentin 100 mg PO TID 12/20/16 12/20/16 History Tramadol HCl [Tramadol Tab] 50 mg PO BID PRN 12/20/16 12/20/16 History metFORMIN XR [Glucophage Xr] 500 mg PO DAILY W/SUPPER 12/20/16 12/20/16 History predniSONE TAB [PredniSONE] 10 mg PO DAILY 12/20/16 12/20/16 History Allergies Allergy/AdvReac Type Severity Reaction Status Date / Time doxycycline Allergy HIVES Verified 12/19/16 21:08 Penicillins Allergy ANAPHYLAXIS Verified 12/19/16 21:08 Sulfa (Sulfonamide AdvReac RASH Verified 12/19/16 21:08 Antibiotics) 12 point system: reviewed and no additional remarkable complaints except as stated Medical,Surgical,& Family Hx - Medical History Cardio: History of: Hypertension Neurology: History of: Migraine, Neurological Problems (history of polio as a child resulting in right lower extremity weakness) No history of: Seizures Endocrine: History of: Diabetes Mellitus (NIDDM) Musculoskeletal: History of: Musculoskeletal Problems (brace on right leg to walk polio as child) - Surgical History Cardiac Surgeries: Sugical HX of: Cardiac Catheterization (12/13/2016) - Family History Family History: Reports;: Family Heart Disease - Social History Smoking Status: Never smoker Frequency of Alcohol Use: None Type of Drug Use: None Exam - Constitutional Vitals: Period Temp Pulse Resp BP Sys/Jenkins Pulse Ox Last 24 Hr 97.4 F-98.5 F 76-85 16-20 112-127/57-67 93-98 Exam: GENERAL: Patient is in no acute distress. NECK: Neck is supple. There is no JVD. No carotid bruits present. No thyroid masses. CVS: First and second heart sounds are normal. There is no S3 present. Regular rate and rhythm. RESPIRATORY: Lungs are clear to auscultation without any rales or rhonchi. ABDOMEN: Soft and non-tender. Bowel sounds are present. There is no hepatosplenomegaly. EXT: There is no palpable edema. Peripheral pulses are present. Skin: No rashes Central Nervous system: General: Alert, awake and Oriented x 3 Speech: Fluent Comprehension: Intact and normal Facial expressions: Normal Cranial Nerves: CN1/Olfactory: Normal CN II/ Optic: Normal, Visual Sutton unreliable CN III, and : LUIS & EOMI CN V: Normal & intact CN VII: face is symmetric CNVIII: Normal CN XI/X/XI/XII: Intact and Normal Motor: Bulk and Tone is normal. Strength in the right LE 3-4/5, RUE 5/5 Strength in the left LE 2-3/5, UE 5/5 Sensory: for all the modalities of PP, LT and temp sense in the glove and stocking distribution Reflexes: 2+ and symmetrical in upper extremities and absent in lower extremities Cerebellar function: Normal finger to nose testing. Toes: Equivocal Gait: She was able to stand up however could not take any steps Results - Labs CBC & BMP: 12/22/16 04:38 12/22/16 11:23 Assessment and Plan (1) Gait disorder Status: Acute Assessment and plan: On exam patient does have absent lower extremity reflexes and slightly brisk upper extremity reflexes which this represents possible spinal cord involvement. Other differential would include peripheral neuropathy including Guillain-Berry syndrome. Plan: MRI of the cervical, thoracic and lumbar spine Nerve conduction study/EMG left arm and leg Consult PT and OT Thank you for the consult Current Visit: Yes
[2016-12-23] MEDS: DIVALPROEX ER 500 MG TABLET PO SCH (20:46)
[2016-12-23] MEDS: LEVOFLOXACIN INJ 500 MG in PREMIX 1 EACH IV SCH (20:46)
[2016-12-23] MEDS: ROSUVASTATIN 20 MG TABLET PO SCH (20:46)
[2016-12-24] MEDS: INSULIN LISPRO 100 UNIT/ML SUBCUT SCH ×4 (07:53→20:15)
[2016-12-24] MEDS ORDERED: ESTRADIOL TRANSDERM SCH (08:07)
--- NOTE | 2016-12-24 08:10 | Family Practice Progress Note ---
Family Practice - PN: Subj Interval history: Patient is feeling some better this morning. Patient does not have any further fevers. She denies any problems except she does have a tender nodule in her left anterior calf. This appears to be erythema nodosum or something similar to it. She does not have any more painful nodules in any other location. Dr. Moore has been consulted. Exam (Progress Note) - Constitutional Vitals: Period Temp Pulse Resp BP Sys/Jenkins Pulse Ox Last 24 Hr 97.7 F-98.7 F 73-85 16-22 109-127/52-68 90-99 Exam: Objective reveals a well-developed black female no acute distress. Patient states she is feeling much better. Cardiovascular: Heart rates regular without murmurs or gallops. Respiratory: The lungs clear to auscultation bilaterally. Abdomen: Abdomen soft and nontender to palpation. Extremities: Patient has a tender nodule to the left anterior calf. Results - Labs CBC & BMP: 12/22/16 04:38 12/22/16 11:23 Lab Results: I have reviewed the past 24 hour labs Assessment and Plan (1) Unsteady gait Status: Resolved Assessment and plan: 12/20/2016: MRI of the brain has been ordered. 12/21/2016: MRI of the brain was unrevealing. Current Visit: Yes (2) Chest pain in adult Status: Resolved Assessment and plan: 12/20/2016: Suspect GI etiology of her discomfort but certainly could be musculoskeletal as well. She has had a negative CT chest and a negative left heart catheterization. 12/21/2016: Patient denies any further chest pain. Current Visit: No (3) Gram positive septicemia Status: Acute Assessment and plan: 12/21/2016: Will check x-ray of the right hip and also ultrasound of the right groin. I am going to start IV vancomycin. 12/22/2016: Patient is clinically improved with the addition of vancomycin. 12/23/2016: We will repeat blood cultures and CRP. Dr. Moore will be consulted. 12/24/2016: Patient is much improved. Current Visit: Yes
[2016-12-24] MEDS ORDERED: ERGOCALCIFEROL 50,000 UNIT CAPSULE PO SCH (09:00)
[2016-12-24] MEDS: ASPIRIN EC 81 MG TABLET PO SCH (09:09)
[2016-12-24] MEDS: predniSONE 10 MG TABLET PO SCH (09:09)
[2016-12-24] MEDS: PANTOPRAZOLE 40 MG VIAL IV SCH (09:09)
[2016-12-24] MEDS: FUROSEMIDE 20 MG TABLET PO SCH (09:09)
[2016-12-24] MEDS: amLODIPine 10 MG TABLET PO SCH (09:09)
[2016-12-24] MEDS: ENOXAPARIN 40 MG/0.4 ML SYRINGE SUBCUT SCH (09:09)
[2016-12-24] MEDS: GABAPENTIN 100 MG CAPSULE PO SCH ×3 (09:09→21:02)
[2016-12-24] MEDS: VANCOMYCIN INJ 1,250 MG in SODIUM CHLORIDE 0.9% 250 ML IV SCH ×2 (09:10→23:08)
[2016-12-24] MEDS: DOCUSATE SODIUM 100 MG CAPSULE PO SCH ×2 (09:23→21:03)
--- NOTE | 2016-12-24 14:51 | XRay Report ---
XR sinus Indication: Fever and headaches. Sinuses 3 views: No mucosal thickening or air-fluid levels are identified within the paranasal sinuses. No bone erosion is seen. Impression: Negative sinuses. PROCEDURE INTERPRETED AT [facility] DEPARTMENT OF RADIOLOGY Final Report Signed by: Prabhjot Glez M.D.
--- NOTE | 2016-12-24 15:39 | Neurology Progress Note ---
Neurology - PN : Subjective Interval history: Patient seems to be feeling a little better. She was able to get up and walk today. Nerve conduction study/EMG reveals peripheral neuropathy likely secondary to diabetes but no evidence of Guillain-Berry syndrome, CIDP or myopathy. Exam (Progress Note) - Constitutional Vitals: Period Temp Pulse Resp BP Sys/Jenkins Pulse Ox Last 24 Hr 97.7 F-98.7 F 73-84 18-22 109-126/52-68 90-99 Exam: GENERAL: Patient is in no acute distress. NECK: Neck is supple. There is no JVD. No carotid bruits present. No thyroid masses. CVS: First and second heart sounds are normal. There is no S3 present. Regular rate and rhythm. RESPIRATORY: Lungs are clear to auscultation without any rales or rhonchi. ABDOMEN: Soft and non-tender. Bowel sounds are present. There is no hepatosplenomegaly. EXT: There is no palpable edema. Peripheral pulses are present. Skin: No rashes Central Nervous system: General: Alert, awake and Oriented x 3 Speech: Fluent Comprehension: Intact and normal Facial expressions: Normal Cranial Nerves: CN1/Olfactory: Normal CN II/ Optic: Normal, Visual Sutton unreliable CN III, and : LUIS & EOMI CN V: Normal & intact CN VII: face is symmetric CNVIII: Normal CN XI/X/XI/XII: Intact and Normal Motor: Bulk and Tone is normal. Strength in the right LE 3-4/5, RUE 5/5 Strength in the left LE 3-4/5, UE 5/5 Sensory: for all the modalities of PP, LT and temp sense in the glove and stocking distribution Reflexes: 2+ and symmetrical in upper extremities and absent in lower extremities Cerebellar function: Normal finger to nose testing. Toes: Equivocal Gait: She was able to stand up and take a few steps today Results - Labs CBC & BMP: 12/22/16 04:38 12/22/16 11:23 Assessment and Plan (1) Gait disorder Status: Acute Assessment and plan: Apparently MRIs are still pending Continue present management with PT and OT No new recommendations at this time Current Visit: Yes
--- NOTE | 2016-12-24 16:44 | Infectious Disease Consult ---
Assessment and Plan (1) CAD (coronary artery disease) Status: Acute Current Visit: No (2) Hypertension Status: Acute Current Visit: No (3) MSSA (methicillin susceptible Staphylococcus aureus) septicemia Status: Acute Assessment and plan: The only thing I can think of is a possible source is her recent procedure 2 weeks ago for cardiac catheterization. She has a tender nodule to the left distal leg and we can watch this to see if it evolves into an abscess. Recommendations: 1. Because her allergy to penicillin did not appear life-threatening and this was many decades ago, when she was a child, I would try her on a third- generation cephalosporin. Start ceftriaxone 2 g IV daily 2. Stop vancomycin once we see that she tolerate ceftriaxone 3. Follow-up results of repeat blood cultures 4. Echocardiogram to ensure no endocarditis 5. Tentatively the patient will be treated with IV antibiotics for 4 weeks from date of first negative blood cultures Thank you very much for the consult. Will follow. Current Visit: Yes History of Present Illness Chief complaint: Positive blood cultures History of present illness: Ms. Abebe is a 66 year old female Admitted last week with weakness and fever. She had blood cultures done on 4 of 4 sets came back positive for MSSA. She. The patient has not recently had any skin or soft tissue infections however she did have cardiac catheterization 2 weeks ago. She said postprocedure a few days after when she went home there was never any drainage from the entry site of the catheter. She did today notice red tender swollen area to the anterior left leg. I am asked to advise on antibiotic therapy. Patient has a documentation of penicillin allergy but this was decades ago and she said it caused swelling of her lips; this was as a child. Home Medications Medication Instructions Recorded Confirmed Type Amlodipine Besylate 10 mg PO DAILY 11/25/14 12/20/16 History Omeprazole [Prilosec] 20 mg PO BEDTIME 11/25/14 12/20/16 History Rosuvastatin Calcium [Crestor] 40 mg PO BEDTIME 11/25/14 12/20/16 History Acetaminophen Tab [Tylenol Tab] 325 mg PO BID #100 tablet 12/13/16 12/20/16 Rx Aspirin [Aspirin EC] 81 mg PO DAILY 12/13/16 12/20/16 History Furosemide 20 mg PO DAILY 12/13/16 12/20/16 History NIFEdipine XL TAB [Procardia Xl] 30 mg PO DAILY PRN 12/13/16 12/20/16 History Divalproex ER [Depakote ER] 500 mg PO BEDTIME 12/20/16 12/20/16 History Ergocalciferol (Vitamin D2) 50,000 unit PO 12/20/16 12/20/16 History [Vitamin D2] Estradiol [Estradiol 0.05 mg/24 hr 1 patch TRANSDERM 12/20/16 12/20/16 History (weekly) Patch] Gabapentin 100 mg PO TID 12/20/16 12/20/16 History Tramadol HCl [Tramadol Tab] 50 mg PO BID PRN 12/20/16 12/20/16 History metFORMIN XR [Glucophage Xr] 500 mg PO DAILY W/SUPPER 12/20/16 12/20/16 History predniSONE TAB [PredniSONE] 10 mg PO DAILY 12/20/16 12/20/16 History Allergies Allergy/AdvReac Type Severity Reaction Status Date / Time doxycycline Allergy HIVES Verified 12/19/16 21:08 Penicillins Allergy ANAPHYLAXIS Verified 12/19/16 21:08 Sulfa (Sulfonamide AdvReac RASH Verified 12/19/16 21:08 Antibiotics) 12 point system: reviewed and no additional remarkable complaints except as stated (Per HPI) Medical,Surgical,& Family Hx - Medical History Cardio: History of: Hypertension Neurology: History of: Migraine, Neurological Problems (history of polio as a child resulting in right lower extremity weakness) No history of: Seizures Endocrine: History of: Diabetes Mellitus (NIDDM) Musculoskeletal: History of: Musculoskeletal Problems (brace on right leg to walk polio as child) - Surgical History Cardiac Surgeries: Sugical HX of: Cardiac Catheterization (12/13/2016) - Family History Family History: Reports;: Family Heart Disease - Social History Smoking Status: Never smoker Frequency of Alcohol Use: None Type of Drug Use: None Infectious Disease Exam H&P - Constitutional Vitals: Vital Signs Temp Pulse Resp BP Pulse Ox 97.7 F 93 H 20 133/76 95 12/24/16 15:52 12/24/16 15:52 12/24/16 15:52 12/24/16 15:52 12/24/16 15:52 Intake and Output 12/24/16 12/24/16 12/24/16 07:59 15:59 23:59 Intake Total 0 / 0 480 / 480 Output Total 1150 / 1150 Balance 0 / 0 -670 / -670 Intake: Oral 0 / 0 480 / 480 Output: Urine 1150 / 1150 Other: Voiding Method Bedside Commode Bedside Commode # Voids 1 Exam: General: Patient relatively comfortable, nontoxic appearing HEENT: Mucous membranes pink and moist, anicteric acyanotic, LUIS, no oropharyngeal exudates Neck: Supple, no thyroid gland enlargement, no lymphadenopathy Respiratory system: Breath sounds vesicular, no crepitations or wheezes Cardiovascular: Normal S1 and S2, no murmurs appreciated Abdomen: Normal bowel sounds, soft nontender throughout, no organomegaly or mass Genitourinary: No suprapubic pain or bladder distention Extremities: Mild bilateral lower extremity edema, left greater than right, about 2 cm x 1.5 cm erythematous tender nodule to left stallings distally Skin: No rash Reports - Labs CBC & BMP: 12/22/16 04:38 12/22/16 11:23 Labs: Laboratory Results - last 24 hr 12/23/16 12/24/16 12/24/16 20:36 07:21 08:45 POC Glucose 108 H 88 Vancomycin Trough 6.5 L 12/24/16 12/24/16 11:41 15:49 POC Glucose 125 H 168 H Vancomycin Trough - Reports Microbiology: Microbiology 12/23/16 09:51 Blood Culture - Preliminary Blood No growth at 1 day 12/23/16 09:51 Blood Culture - Preliminary Blood No growth at 1 day 12/20/16 16:31 Blood Culture - Final Blood Staphylococcus aureus 12/20/16 16:31 Blood Culture - Final Blood Staphylococcus aureus - Diagnostic Findings Procedure: CT - chest: image reviewed by me, report reviewed by me (No consolidation or effusion)
[2016-12-24] MEDS: cefTRIAXone 2,000 MG in SODIUM CHLORIDE 0.9% 100 ML IV SCH (18:05)
[2016-12-24] MEDS: DIVALPROEX ER 500 MG TABLET PO SCH (21:02)
[2016-12-24] MEDS: ROSUVASTATIN 20 MG TABLET PO SCH (21:02)
[2016-12-24] MEDS: LEVOFLOXACIN INJ 500 MG in PREMIX 1 EACH IV SCH (21:03)
--- NOTE | 2016-12-25 08:08 | Family Practice Progress Note ---
Family Practice - PN: Subj Interval history: Patient says she is feeling well and not have any new complaints. The subcutaneous nodule on her left calf is starch mangle tender. She denies any cough or shortness of breath. Her sinus films yesterday were normal. She was seen by Dr. Moore yesterday and she is advocating Rocephin for the next 4 weeks. We will see how she does today with that antibiotic and if she is doing well I will discharge her home tomorrow for outpatient antibiotic therapy. Exam (Progress Note) - Constitutional Vitals: Period Temp Pulse Resp BP Sys/Jenkins Pulse Ox Last 24 Hr 97.0 F-98.4 F 75-93 16-20 112-134/56-76 95-99 Exam: Objective reveals a well-developed black female no acute distress. Patient states she is feeling much better. Cardiovascular: Heart rates regular without murmurs or gallops. Respiratory: The lungs clear to auscultation bilaterally. Abdomen: Abdomen soft and nontender to palpation. Extremities: Patient has a tender nodule to the left anterior calf which is unchanged from yesterday. Results - Labs CBC & BMP: 12/22/16 04:38 12/22/16 11:23 Lab Results: I have reviewed the past 24 hour labs Assessment and Plan (1) Unsteady gait Status: Resolved Assessment and plan: 12/20/2016: MRI of the brain has been ordered. 12/21/2016: MRI of the brain was unrevealing. Current Visit: Yes (2) Chest pain in adult Status: Resolved Assessment and plan: 12/20/2016: Suspect GI etiology of her discomfort but certainly could be musculoskeletal as well. She has had a negative CT chest and a negative left heart catheterization. 12/21/2016: Patient denies any further chest pain. Current Visit: No (3) Gram positive septicemia Status: Acute Assessment and plan: 12/21/2016: Will check x-ray of the right hip and also ultrasound of the right groin. I am going to start IV vancomycin. 12/22/2016: Patient is clinically improved with the addition of vancomycin. 12/23/2016: We will repeat blood cultures and CRP. Dr. Moore will be consulted. 12/24/2016: Patient is much improved. 12/25/2016: Patient is clinically improved. She has had repeat blood culture and is now on IV Rocephin. Current Visit: Yes
[2016-12-25] MEDS: GABAPENTIN 100 MG CAPSULE PO SCH ×3 (08:51→21:08)
[2016-12-25] MEDS: amLODIPine 10 MG TABLET PO SCH (08:51)
[2016-12-25] MEDS: ENOXAPARIN 40 MG/0.4 ML SYRINGE SUBCUT SCH (08:51)
[2016-12-25] MEDS: FUROSEMIDE 20 MG TABLET PO SCH (08:51)
[2016-12-25] MEDS: predniSONE 10 MG TABLET PO SCH (08:51)
[2016-12-25] MEDS: DOCUSATE SODIUM 100 MG CAPSULE PO SCH ×2 (08:52→21:08)
[2016-12-25] MEDS: ASPIRIN EC 81 MG TABLET PO SCH (08:52)
[2016-12-25] MEDS: PANTOPRAZOLE 40 MG VIAL IV SCH (08:52)
[2016-12-25] MEDS: INSULIN LISPRO 100 UNIT/ML SUBCUT SCH ×4 (08:52→22:01)
[2016-12-25] MEDS: VANCOMYCIN INJ 1,250 MG in SODIUM CHLORIDE 0.9% 250 ML IV SCH (08:54)
--- NOTE | 2016-12-25 11:56 | Infectious Disease Progress ---
Assessment and Plan (1) CAD (coronary artery disease) Status: Acute Current Visit: No (2) Hypertension Status: Acute Current Visit: No (3) MSSA (methicillin susceptible Staphylococcus aureus) septicemia Status: Acute Assessment and plan: The only thing I can think of is a possible source is her recent procedure 2 weeks ago for cardiac catheterization. She has a tender nodule to the left distal leg but it does not appear to be infectious. Recommendations: 1. Continue ceftriaxone as she is tolerating without any allergic reactions 2. Stop vancomycin. Will also stop levofloxacin. 3. Follow-up results of repeat blood cultures 4. Echocardiogram to ensure no endocarditis; I think I forgot to order a chest 5. Tentatively the patient will be treated with IV antibiotics for 4 weeks from date of first negative blood cultures 6. If repeat blood cultures remain negative tomorrow she can probably get a PICC line for her prolonged IV antibiotic therapy Current Visit: Yes Infectious Disease - PN: Subj Interval history: Patient doing relatively well today, no fever. She tolerated the ceftriaxone with absolutely no problems. She is eating well no vomiting or diarrhea. No worsening of the tender spot to her left inferior stallings. Infectious Disease Exam (PN) - Constitutional Vitals: Temp Pulse Resp BP Pulse Ox 97.0 F L 78 20 97/67 97 12/25/16 11:32 12/25/16 11:32 12/25/16 11:32 12/25/16 11:32 12/25/16 11:32 Exam: General appearance: no acute distress - Eye Eye exam: Present: EOMI. no icterus Pupils: Present: LUIS - ENT ENT exam: no oral exudates - Respiratory Respiratory exam: vesicular BS, no crepitations or wheezes - Cardiovascular Cardiovascular exam: regular rate and rhythm, no murmurs - GI/Abdominal GI/Abdominal exam: normal bowel sounds, soft, non-tender, no organomegaly or mass -MS She has a bladder stimulator inserted to the left lower back, no overlying induration or tenderness or swelling - Extremities Exam Extremities exam: no edema, tender erythematous lump to left inferior stallings unchanged since yesterday - Skin Skin exam: no rash Results - Labs CBC & BMP: 12/22/16 04:38 12/22/16 11:23 Lab Results: I have reviewed the past 24 hour labs (Repeat blood culture from 23 December no growth to date)
--- NOTE | 2016-12-25 15:06 | Neurology Progress Note ---
Neurology - PN : Subjective Interval history: Patient is back to her baseline neurologically. Able to get up and walk with a limp. However she reported that her walking is back to normal. Exam (Progress Note) - Constitutional Vitals: Period Temp Pulse Resp BP Sys/Jenkins Pulse Ox Last 24 Hr 97.0 F-98.0 F 77-93 16-20 97-134/56-76 95-99 Exam: GENERAL: Patient is in no acute distress. NECK: Neck is supple. There is no JVD. No carotid bruits present. No thyroid masses. CVS: First and second heart sounds are normal. There is no S3 present. Regular rate and rhythm. RESPIRATORY: Lungs are clear to auscultation without any rales or rhonchi. ABDOMEN: Soft and non-tender. Bowel sounds are present. There is no hepatosplenomegaly. EXT: There is no palpable edema. Peripheral pulses are present. Skin: No rashes Central Nervous system: General: Alert, awake and Oriented x 3 Speech: Fluent Comprehension: Intact and normal Facial expressions: Normal Cranial Nerves: CN1/Olfactory: Normal CN II/ Optic: Normal, Visual Sutton unreliable CN III, and : LUIS & EOMI CN V: Normal & intact CN VII: face is symmetric CNVIII: Normal CN XI/X/XI/XII: Intact and Normal Motor: Bulk and Tone is normal. Strength in the right LE 4/5, RUE 5/5 Strength in the left LE 4/5, UE 5/5 Sensory: for all the modalities of PP, LT and temp sense in the glove and stocking distribution Reflexes: 2+ and symmetrical in upper extremities and absent in lower extremities Cerebellar function: Normal finger to nose testing. Toes: Equivocal Gait: She was able to stand up and walk with a limp Results - Labs CBC & BMP: 12/22/16 04:38 12/22/16 11:23 Assessment and Plan (1) Gait disorder Status: Acute Assessment and plan: Patient is back to her baseline now Continue present management with PT and OT No new recommendations at this time Sign off please call as needed Current Visit: Yes
--- NOTE | 2016-12-25 15:10 | Physician Query Form ---
CLICK EDIT DOCUMENT TO SELECT QUERY ANSWER --> OK --> SIGN Jade Galeana RN Clinical Regional Sales Associate W) [phone] (f) [phone] [email or web address] PROVIDERS: Make your selection(s) from the choices in EACH section by typing an "x" and enter comments in the comment section. Please use your independent medical judgment in providing your response. This request does not imply that any particular answer is desired or expected. 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 Notes: Class 3 obesity If applicable, please provide an associated diagnosis related to the abnormal BMI: BMI of 40 or greater: ( ) Overweight (x ) Obesity ( ) Morbid//Severe Obesity ( ) Obesity with Alveolar Hypoventilation ( ) Weight Gain ( ) BMI is not significant ( ) Other, please specify: ( ) Clinically unable to determine COMMENTS: PLEASE ALSO DOCUMENT RESPONSE IN PROGRESS NOTES AND/OR DISCHARGE SUMMARY Use of terms such as suspected, likely, or probable (associated with a specific diagnosis that is being evaluated, monitored, or treated as if it exists) are acceptable and can be restated in the discharge summary if not ruled out. MTDD
[2016-12-25] MEDS: cefTRIAXone 2,000 MG in SODIUM CHLORIDE 0.9% 100 ML IV SCH (17:55)
--- NOTE | 2016-12-25 18:58 | ECHO Report ---
Gisela Abebe Exam Date: 12/25/2016 16:21 Referring Physician: Technologist: Demetrice Martinez ROSALINO Age: 66 Ht (in): 66 Wt (lb): 222 Gender: F Exam Location: [facility] Echo Indications: Chest pain, unspecified, Essential (primary) hypertension, CAD, UTI, Confusion, MSSA septicemia BP: 97 / 67 HR: 78 Rhythm: Sinus Technical Quality: average with limited endocardial resolution IMPRESSIONS Left ventricular ejection fraction is estimated at 60 %. Grade I diastolic dysfunction. No significant valve pathology seen MEASUREMENTS (Male / Female) Normal Values 2D ECHO LV Diastolic Diameter PLAX 4.3 cm 4.2 - 5.9 / 3.9 - 5.3 cm LV Systolic Diameter PLAX 2.7 cm LV Fractional Shortening PLAX 37.9 % IVS Diastolic Thickness 0.9 cm 0.6 - 1.0 / 0.6 - 0.9 cm LVPW Diastolic Thickness 0.9 cm 0.6 - 1.0 / 0.6 - 0.9 cm RV Internal Dim ED PLAX 2.9 cm Aortic Root Diameter 2.6 cm LA Systolic Diameter LX 4.0 cm 3.0 - 4.0 / 2.7 - 3.8 cm FINDINGS Left Ventricle Normal left ventricular cavity size. Normal left ventricular wall thickness. Left ventricular ejection fraction is estimated at 60 %. Grade I diastolic dysfunction. Right Ventricle The right ventricle is normal in size and function. Right Atrium The right atrium is mildly enlarged. Left Atrium The left atrium is mildly enlarged. Mitral Valve Morphologically normal mitral valve. Trace mitral valve regurgitation. Aortic Valve Mild aortic valve sclerosis without stenosis or regurgitation. Tricuspid Valve Morphologically normal tricuspid valve. Trace tricuspid valve regurgitation. Pulmonic Valve Morphologically normal pulmonic valve without significant stenosis. There is no pulmonic regurgitation. Pericardium Normal pericardium without effusion. Aorta Normal ascending aorta dimension. Lauren Story (Electronically Signed) Final Date: 25 Dec 2016 18:57
[2016-12-25] MEDS: ROSUVASTATIN 20 MG TABLET PO SCH (21:08)
[2016-12-25] MEDS: DIVALPROEX ER 500 MG TABLET PO SCH (21:08)
--- NOTE | 2016-12-26 07:43 | Discharge Summary ---
Hospital Course - Hospital Course Hospital Course: Patient 66-year-old black female admitted through the emergency room with chest pain, weakness and febrile illness. Patient recently been seen and admitted to the hospital and had a diagnostic left heart catheterization that showed no evidence of coronary artery disease. Patient told me she started feeling bad 3- 4 days after this. She had a subjective fever and also complaining of some left upper extremity weakness. CT of the brain revealed no abnormality. She also had a CT of the chest in the emergency room reveal no acute abnormality. Patient did undergo MRI of the brain that showed no evidence of acute stroke. Her left upper extremity numbness and weakness resolved spontaneously. Blood cultures were ordered and she was positive for MSSA on several blood cultures. Patient seen in consultation with Dr. Moore. The only source of infection that I or she could determine was for left heart catheterization. Patient did well with antibiotic therapy and was switched to IV Rocephin. She will continue to get this at the infusion center. PICC line will be placed prior to discharge. Diagnosis - Discharge Diagnosis (1) Unsteady gait Status: Resolved (2) Chest pain in adult Status: Resolved (3) Gram positive septicemia Status: Acute Discharge Plan - Discharge Data Disposition: Disch To Home/Self Care Condition at Discharge: Stable Discharge Diet: advance to your usual diet Activity: resume usual activities as tolerated Hygiene: no restrictions Weight Bearing at Discharge: full weight bearing Driving: no restrictions Contact your physician if you experience:: fever over 101 - Discharge Medications New Aspirin EC Tab 81 mg PO DAILY tablet cefTRIAXone [Rocephin] 2,000 mg IV Q24H vial Acetaminophen Tab [Tylenol Tab] 650 mg PO Q6H PRN tablet PRN Reason: Fever > 100.4 Or Headache Continue Rosuvastatin Calcium [Crestor] 40 mg PO BEDTIME Amlodipine Besylate 10 mg PO DAILY Omeprazole [Prilosec] 20 mg PO BEDTIME NIFEdipine XL TAB [Procardia Xl] 30 mg PO DAILY PRN PRN Reason: Pain Furosemide 20 mg PO DAILY Acetaminophen Tab [Tylenol Tab] 325 mg PO BID #100 tablet Estradiol [Estradiol 0.05 mg/24 hr (weekly) Patch] 1 patch TRANSDERM TUSA metFORMIN XR [Glucophage Xr] 500 mg PO DAILY W/SUPPER Tramadol HCl [Tramadol Tab] 50 mg PO BID PRN PRN Reason: Pain Gabapentin 100 mg PO TID Ergocalciferol (Vitamin D2) [Vitamin D2] 50,000 unit PO TUSA Aspirin [Aspirin EC] 81 mg PO DAILY Divalproex ER [Depakote ER] 500 mg PO BEDTIME predniSONE TAB [PredniSONE] 10 mg PO DAILY - Follow Up or Referral Follow Up: Bc Zelaya MD [Primary Care Provider] - 1 Month - Forms/Instructions Exam - Constitutional Vitals: Period Temp Pulse Resp BP Sys/Jenkins Pulse Ox Last 24 Hr 97.0 F-99.1 F 72-85 16-20 97-121/56-70 92-97 Exam: Objective reveals a well-developed black female no acute distress. Patient states she is feeling much better and is ready to go home. Cardiovascular: Heart rates regular without murmurs or gallops. Respiratory: The lungs clear to auscultation bilaterally. Abdomen: Abdomen soft and nontender to palpation. Extremities: Patient has a tender nodule to the left anterior calf which is unchanged from yesterday. Discharge Results Procedures and tests throughout hospitalization: Pending Orders 12/23/16 09:51 Blood Culture Routine Labs on day of discharge: Labs from last 24 hours 12/25/16 12/25/16 12/25/16 21:11 15:47 11:28 POC Glucose 106 178 H 141 H 12/25/16 12/24/16 07:13 20:01 POC Glucose 94 149 H Preliminary micro results at discharge 12/23/16 09:51 Blood Culture - Preliminary Blood No growth at 1 day 12/23/16 09:51 Blood Culture - Preliminary Blood No growth at 1 day Repeat blood cultures were negative. DS: Provider Date of admission: 12/20/16 00:47 Primary care physician: Bc Zelaya MD Attending physician on admission: Bc Zelaya MD Consults: 12/20/16 02:58 Consult to Case Mgmt/Social Srvs [CONS] Routine Reason for Case Mgmt/Social Srvs: Discharge Planning 12/20/16 08:04 Consult to Physician [CONS] Routine Comment: Consulting Provider: Dean Milan Person Notified: Dr. Milan Date Notified: 12/23/16 Time Notified: 10:55 12/21/16 07:51 Consult to Pharmacy [CONS] Routine Reason for Pharmacy Consult: Dose/Manage Vancomycin 12/23/16 08:56 Consult to Physician [CONS] Routine Comment: Consulting Provider: Asmita Moore Consult to Specialist Group: Infectious Disease Person Notified: KAREEN Date Notified: 12/24/16 Time Notified: 09:00 12/23/16 13:36 Consult to Occupational Therapy [CONS] Routine Reason for Occupational Therapy: Evaluate and Treat Consult to Physical Therapy [CONS] Routine Reason for Physical Therapy: Evaluate and Treat Discharging clinician: Bc Zelaya MD Expected date of discharge: 12/26/16
[2016-12-26] MEDS: INSULIN LISPRO 100 UNIT/ML SUBCUT SCH ×2 (08:16→12:02)
--- NOTE | 2016-12-26 09:32 | Infectious Disease Progress ---
Assessment and Plan (1) CAD (coronary artery disease) Status: Acute Current Visit: No (2) Hypertension Status: Acute Current Visit: No (3) MSSA (methicillin susceptible Staphylococcus aureus) septicemia Status: Acute Assessment and plan: The only thing I can think of is a possible source is her recent procedure 2 weeks ago for cardiac catheterization. She has a tender nodule to the left distal leg but it does not appear to be infectious. TTE without mention of vegetations on valves. Recommendations: 1. Continue ceftriaxone 2 g daily, last dose will be on January 19 2. nutrition services worker consult arrange outpatient infusion center appointment for antibiotics 3. PICC line today 4. Appointment to see me in the office in 1 week Current Visit: Yes Infectious Disease - PN: Subj Interval history: Patient doing well, no rash or itching or other problems with the ceftriaxone. She has been afebrile. No worsening on the lump to her left stallings. Infectious Disease Exam (PN) - Constitutional Vitals: Temp Pulse Resp BP Pulse Ox 97.6 F 78 16 111/59 93 L 12/26/16 08:00 12/26/16 08:00 12/26/16 08:00 12/26/16 08:00 12/26/16 08:00 Exam: General appearance: no acute distress - Eye Eye exam: Present: EOMI. no icterus Pupils: Present: LUIS - ENT ENT exam: no oral exudates - Respiratory Respiratory exam: vesicular BS, no crepitations or wheezes - Cardiovascular Cardiovascular exam: regular rate and rhythm, no murmurs - GI/Abdominal GI/Abdominal exam: normal bowel sounds, soft, non-tender -MS She has a bladder stimulator inserted to the left lower back, no overlying induration or tenderness or swelling - Extremities Exam Extremities exam: no edema, tender erythematous lump to left inferior stallings unchanged since yesterday - Skin Skin exam: no rash Results - Labs CBC & BMP: 12/22/16 04:38 12/22/16 11:23 Lab Results: I have reviewed the past 24 hour labs (Repeat blood cultures negative to date) Specialty Discharge - Follow Up or Referrals Follow up with: Bc Zelaya MD [Primary Care Provider] - 1 Month
[2016-12-26] MEDS: predniSONE 10 MG TABLET PO SCH (09:45)
[2016-12-26] MEDS: DOCUSATE SODIUM 100 MG CAPSULE PO SCH ×2 (09:45→10:15)
[2016-12-26] MEDS: PANTOPRAZOLE 40 MG VIAL IV SCH ×2 (09:45→10:14)
[2016-12-26] MEDS: ENOXAPARIN 40 MG/0.4 ML SYRINGE SUBCUT SCH (09:45)
[2016-12-26] MEDS: amLODIPine 10 MG TABLET PO SCH (09:45)
[2016-12-26] MEDS: FUROSEMIDE 20 MG TABLET PO SCH (09:45)
[2016-12-26] MEDS: ASPIRIN EC 81 MG TABLET PO SCH (09:45)
[2016-12-26] MEDS: GABAPENTIN 100 MG CAPSULE PO SCH ×2 (09:45→15:39)
[2016-12-26] MEDS: cefTRIAXone 2,000 MG in SODIUM CHLORIDE 0.9% 100 ML IV SCH (15:40)
[2016-12-26 16:31] VITALS: BP 113/60
== END 2016-12-26 16:31 | disposition home or self-care (01) | DRG 872 ==
LOC: N.ED 20:52 → N.EDINP 12-20 00:47 → N.TELES 12-20 01:09
PROVIDERS: ADMIT Family Medicine; ATTEND Family Medicine